=== PATIENT | female | born 1985 | race Caucasian/White ===

== ENCOUNTER 2021-04-26 20:29 | Emergency (ER) | payer MEDICAID, SELFPAY ==
--- NOTE | ~2021-04-26 | XR_ITS ---
EXAMINATION: XR chest 2V EXAM DATE: 04/26/2021 20:55 INDICATION: chest pain TECHNIQUE: Frontal and lateral projections of the chest obtained and reviewed. There is no prior melia dy for comparison. FINDINGS: The lungs are clear. There are no pleural effusions. The cardiomediastinal silhouette is within normal limits. There is no pneumothorax suspected. The bones and soft tissues are unremarkab le. IMPRESSION: No acute cardiopulmonary findings. Reviewed, dictated and finalized at location G. MAKING MACHINE OPERATOR
--- NOTE | 2021-04-26 20:30 | ECG_ITS ---
Measurements Intervals [place] Rate: 86 P: 73 NM: 153 QRS: 57 QRSD: 87 T: 39 QT: 341 QTc: 409 Interpretive Statements SINUS RHYTHM BASELINE ARTIFACT- I, II, III, AVR, AVL, AVF, V4-V6 NORMAL ECG Electronically Signed On 04-26-2021 20:35:33 TELEPHONE CLAIMS REPRESENTATIVE by Alvarado Pulido D.O.
[2021-04-26 20:44] VITALS: BP 132/77; PULSE 87; RESP 18; O2SAT 100
[2021-04-26 21:16] LABS: Basophils Percent Auto 0.4 % (0.2-1.2); Eosinophils Absolute Auto 0.1 K/mm3 (0-0.3); Eosinophils Percent Auto 0.8 % (0-4.4); Hematocrit 47.1 % (37.0-47.0); Hemoglobin 15.8 g/dL (12.0-15.0); Immature Granulocyte Absolute 0.06 K/mm3 (0.00-0.031); Immature Granulocyte Percent A 0.8 % (0-0.5); Lymphocytes Absolute Auto 0.91 K/mm3 (0.9-3.2); Lymphocytes Percent Auto 12.2 % (18.3-44.2); Mean Corpuscular HGB Conc 33.5 g/dl (32-36); Mean Corpuscular Hemoglobin 30.5 pg (26-34); Mean Corpuscular Volume 90.9 fl (80-100); Mean Platelet Volume 10.1 fl (7.4-10.4); Monocytes Percent Auto 13.4 % (2.6-8.5); Neutrophils Absolute Auto 5.4 K/mm3 (1.3-6.7); Neutrophils Percent Auto 72.4 % (45.5-73.1); Platelet Count Result 257 k/mm3 (150-375); Red Blood Count 5.18 M/mm3 (4.2-5.4); Red Cell Distribution Width 12.6 % (11.5-14.5); White Blood Count 7.5 K/mm3 (4.5-10.0)
[2021-04-26 21:31] LABS: Alanine Aminotransferase 22 U/L (4-35); Albumin Level 4.9 g/dL (3.5-5.1); Alkaline Phosphatase 64 U/L (38-126); Anion Gap 9 mmol/L (8-16); Aspartate Amino Transferase 23 U/L (14-36); Bilirubin,Total 0.4 mg/dL (0.2-1.3); Blood Urea Nitrogen 14 mg/dL (7-17); Calcium 9.7 mg/dL (8.4-10.2); Carbon Dioxide 27 mmol/L (22-30); Chloride 100 mmol/L (98-107); Estimated CRCL calculation 66 ml/min; Estimated Glomerular Filt Rate > 60; Glucose 104 mg/dL (65-110); Lipase 48 U/L (23-300); Sodium 136 mmol/L (137-145)
[2021-04-26 21:32] LABS: Partial Thromboplastin Time 36.3 SECONDS (22.3-36.8); Prothrombin Time 13.4 Seconds (11.1-14.7)
[2021-04-26 21:40] LABS: Troponin I < 0.012 ng/mL (0.000-0.034)
[2021-04-26 21:43] LABS: Troponin I < 0.012 ng/mL (0.000-0.034)
[2021-04-26 22:00] VITALS: PULSE 92
--- NOTE | 2021-04-26 22:21 | ED.GENADULT ---
HPI - General Adult General Chief complaint: Chest Pain Stated complaint: Chest pain Time Seen by Provider: 04/26/21 20:56 History of Present Illness HPI narrative: Patient 36-year-old female presents the emergency room with chief complaint of chest pain. Patient reports that since yesterday she has been having discomfort in the left side of her chest and upper abdomen patient states it radiates to her left arm reports that she has had a decreased appetite reports no nausea no vomiting denies localizing abdominal pain. Patient states that she had similar episodes a few years ago where she was told that she had reflux the patient states that she has no other significant past medical history the patient states that her brother has a first-degree AV block but other than that no history of early cardiac disease in the family. Related Data Allergies Allergy/AdvReac Type Severity Reaction Status Date / Time Penicillins Allergy Hives Verified 04/26/21 21:55 Review of Systems Review of Systems: A 10 system review of systems was completed on the patient and is negative except for what is stated in the HPI. Nursing and ancillary documentation was reviewed. Exam Narrative: GENERAL: Well-appearing, well-nourished, and in no acute distress. HEAD: Normocephalic, atraumatic. EYES: PERRLA and EOMI. ENT: Nares clear, no rhinorrhea or epistaxis. Mucous membranes moist. NECK: Supple. CHEST: Clear to auscultation. No respiratory distress. HEART: Regular rate and rhythm. No murmur heard. Normal peripheral pulses. ABDOMEN: Soft, nontender, nondistended, normal active bowel sounds. EXTREMITIES: Normal range of motion. No edema. SKIN: Warm, dry, no rash. NEURO: No focal deficits. Alert and oriented x3. PSYCH: Normal mood and affect. Course Course Emergency Course: EKG is sinus rhythm rate of [address] elevation or ST depression noted Vital Signs Vital signs: Vital Signs Pulse Rate 87 04/26/21 20:44 Respiratory Rate 18 04/26/21 20:44 Blood Pressure 132/77 04/26/21 20:44 Pulse Oximetry 100 04/26/21 20:44 Pulse Rate 87 04/26/21 20:44 Respiratory Rate 18 04/26/21 20:44 Blood Pressure 132/77 04/26/21 20:44 Pulse Oximetry 100 04/26/21 20:44 Medical Decision Making Vital Signs Vital Signs: Vital Signs Pulse Rate 87 04/26/21 20:44 Respiratory Rate 18 04/26/21 20:44 Blood Pressure 132/77 04/26/21 20:44 Pulse Oximetry 100 04/26/21 20:44 Pulse Rate 87 04/26/21 20:44 Respiratory Rate 18 04/26/21 20:44 Blood Pressure 132/77 04/26/21 20:44 Pulse Oximetry 100 04/26/21 20:44 Lab Data Result diagrams: 04/26/21 21:09 04/26/21 21:09 Labs: Lab Results 04/26/21 04/26/21 04/26/21 Range/Units 21:09 21:09 21:09 WBC 7.5 (4.5-10.0) K/mm3 RBC 5.18 (4.2-5.4) M/mm3 Hgb 15.8 H (12.0-15.0) g/dL Hct 47.1 H (37.0-47.0) % MCV 90.9 (80-100) fl MCH 30.5 (26-34) pg MCHC 33.5 (32-36) g/dl RDW 12.6 (11.5-14.5) % Plt Count 257 (150-375) k/mm3 MPV 10.1 (7.4-10.4) fl Immature Gran % (Auto) 0.8 H (0-0.5) % Neut % (Auto) 72.4 (45.5-73.1) % Lymph % (Auto) 12.2 L (18.3-44.2) % [place] % (Auto) 13.4 H (2.6-8.5) % Eos % (Auto) 0.8 (0-4.4) % Baso % (Auto) 0.4 (0.2-1.2) % Lymph # (Auto) 0.91 (0.9-3.2) K/mm3 [place] # (Auto) 1.0 H (0.1-0.6) K/mm3 Eos # (Auto) 0.1 (0-0.3) K/mm3 Baso # (Auto) 0.0 (0.0-0.1) K/mm3 Abs Immat Gran (auto) 0.06 H (0.00-0.031) K/mm3 Absolute Neuts (auto) 5.4 (1.3-6.7) K/mm3 Absolute Nucleated RBC 0.0 (0.0-0.012) K/mm3 Nucleated RBC % 0.0 (0.0-0.2) % PT 13.4 (11.1-14.7) Seconds INR 1.0 APTT 36.3 (22.3-36.8) SECONDS Sodium 136 L (137-145) mmol/L Potassium 4.0 (3.4-5.0) mmol/L Chloride 100 (98-107) mmol/L Carbon Dioxide 27 (22-30) mmol/L Anion Gap 9 (8-16) mmol/L BUN 14 (7-17) mg/dL Creatin
[2021-04-26] MEDS: BELLADONNA ALK/PHENOB ELIX 10 ML, MAG HYDROX/ALUMINUM HYD/SIMETH 30 ML, LIDOCAINE HCL 2... PO (22:26)
[2021-04-26] MEDS: ASPIRIN 81 MG CHEWABLE TABLET 324 MG PO (22:26)
[2021-04-26 23:12] VITALS: BP 122/79; PULSE 90; RESP 20; O2SAT 100
== END 2021-04-26 23:13 | disposition home or self-care (01) ==
PROVIDERS: Emergency Medicine; Emergency Provider Emergency Medicine; PCP Internal Medicine Infectious Disease
DX: R07.89 Other chest pain (principal)
CPT/HCPCS: 36415; 71046; 80053; 83690; 84484; 85025; 85610; 85730; 93005; 99284; A9270